=== PATIENT | female | born 1960 | race Caucasian/White ===

== ENCOUNTER → 2016-10-08 | Outpatient (CLI) | payer BC ==
--- NOTE | 2016-10-09 09:37 | MM ---
Reason for exam: screening (asymptomatic). Last mammogram was performed 1 year ago. History: Patient is postmenopausal and history of other cancer. Family history of breast cancer in paternal aunt at age 80 and breast cancer in paternal grandmother at age 60. Physical Findings: A clinical breast exam by your physician is recommended on an annual basis and results should be correlated with mammographic findings. MG Screening Mammo w CAD Bilateral CC and MLO view(s) were taken. Prior study comparison: September 24, 2015, bilateral MG 3d screening mammo w/cad. July 25, 2014, bilateral MG screening mammo w CAD. June 27, 2013, bilateral digital screening mammo w/CAD. There are scattered fibroglandular densities. No significant changes when compared with prior studies. ASSESSMENT: Negative, BI-RAD 1 RECOMMENDATION: Routine screening mammogram of both breasts in 1 year.
== END ==
LOC: RADMAMWWP 16:55
PROVIDERS: ATTEND Hospitalist
DX: Z12.31 Encounter for screening mammogram for malignant neoplasm of breast (principal)

== ENCOUNTER → 2017-12-23 | Outpatient (CLI) | payer BC ==
--- NOTE | 2017-12-25 07:30 | MM ---
Reason for exam: screening (asymptomatic). Last mammogram was performed 1 year and 3 months ago. History: Patient is postmenopausal and has history of other cancer at age 52. Family history of breast cancer in paternal aunt at age 80. Physical Findings: A clinical breast exam by your physician is recommended on an annual basis and results should be correlated with mammographic findings. MG Screening Mammo w CAD Bilateral CC and MLO view(s) were taken. Prior study comparison: October 08, 2016, bilateral MG screening mammo w CAD. September 24, 2015, bilateral MG 3d screening mammo w/cad. There are scattered fibroglandular densities. No significant changes when compared with prior studies. ASSESSMENT: Negative, BI-RAD 1 RECOMMENDATION: Routine screening mammogram of both breasts in 1 year.
== END | disposition home or self-care (01) ==
LOC: RADMAMWWP 09:51
PROVIDERS: ATTEND Internal Medicine
DX: Z12.31 Encounter for screening mammogram for malignant neoplasm of breast (principal)
CPT/HCPCS: 77067

== ENCOUNTER → 2019-04-04 | Outpatient (CLI) | payer BC ==
--- NOTE | 2019-04-06 08:47 | MM ---
Reason for exam: screening (asymptomatic). Last mammogram was performed 1 year and 3 months ago. History: Patient is postmenopausal and has history of other cancer at age 52. Family history of breast cancer in paternal aunt at age 80. Physical Findings: A clinical breast exam by your physician is recommended on an annual basis and results should be correlated with mammographic findings. MG Screening Mammo w CAD Bilateral CC and MLO view(s) were taken. Prior study comparison: December 23, 2017, bilateral MG screening mammo w CAD. October 08, 2016, bilateral MG screening mammo w CAD. There are scattered fibroglandular densities. No significant changes when compared with prior studies. ASSESSMENT: Negative, BI-RAD 1 RECOMMENDATION: Routine screening mammogram of both breasts in 1 year.
== END | disposition home or self-care (01) ==
LOC: RADMAMWWP 16:34
PROVIDERS: ATTEND Hospitalist
DX: Z12.31 Encounter for screening mammogram for malignant neoplasm of breast (principal)
CPT/HCPCS: 77067

== ENCOUNTER 2020-03-24 22:28 | Emergency (ER) | payer BC ==
[2020-03-24 22:35] VITALS: BP 164/85; PULSE 118; RESP 18; TEMP 98.6
--- NOTE | 2020-03-25 00:14 | ED ---
Eye Problem HPI - General Chief complaint: Eye Problems Stated complaint: Eye Problems Time Seen by Provider: 03/24/20 23:25 Source: patient, RN notes reviewed, old records reviewed Mode of arrival: ambulatory Limitations: no limitations - History of Present Illness Initial comments: This is a 59-year-old female DF for evaluation. Patient presents today for evaluation of blurry vision and vitreous floaters only her right eye. History of similar symptoms are less his vitreal tear suffers from [place] glaucoma denies eye pain or trauma. Patient has been taking medications as appropriately MD chief complaint: eye pain (No eye pain patient does have for his in the right eye) -: hour(s) Onset Description: gradual Location: right eye Place: home If Injury: none Severity: mild Consistency: now resolved Associated Symptoms: none Treatments Prior to Arrival: none - Related Data Allergies Allergy/AdvReac Type Severity Reaction Status Date / Time azithromycin [From Zithromax] Allergy Vomiting Verified 03/24/20 22:35 codeine Allergy Vomiting Verified 03/24/20 22:35 latex Allergy Rash/Hives Verified 03/24/20 22:35 Review of Systems ROS Statement: Those systems with pertinent positive or pertinent negative responses have been documented in the HPI. ROS Other: All systems not noted in ROS Statement are negative. Past Medical History Additional Past Medical History / Comment(s): occular hypertension, uterine CA History of Any Multi-Drug Resistant Organisms: None Reported Past Surgical History: Hysterectomy Past Psychological History: Anxiety Smoking Status: Never smoker Past Alcohol Use History: None Reported Past Drug Use History: None Reported General Exam Limitations: no limitations General appearance: alert, in no apparent distress Head exam: Present: atraumatic, normocephalic, normal inspection Eye exam: Present: normal appearance, PERRL, EOMI. Absent: scleral icterus, conjunctival injection, periorbital swelling ENT exam: Present: normal exam, mucous membranes moist Neck exam: Present: normal inspection. Absent: tenderness, meningismus, lymphadenopathy Respiratory exam: Present: normal lung sounds bilaterally. Absent: respiratory distress, wheezes, rales, rhonchi, stridor Cardiovascular Exam: Present: normal rhythm, tachycardia, normal heart sounds. Absent: systolic murmur, diastolic murmur, rubs, gallop, clicks GI/Abdominal exam: Present: soft, normal bowel sounds. Absent: distended, tenderness, guarding, rebound, rigid Extremities exam: Present: normal inspection, full ROM, normal capillary refill. Absent: tenderness, pedal edema, joint swelling, calf tenderness Back exam: Present: normal inspection Neurological exam: Present: alert, oriented X3, CN II-XII intact Psychiatric exam: Present: normal affect, normal mood Skin exam: Present: warm, dry, intact, normal color. Absent: rash Course Vital Signs 03/24/20 22:32 Temperature 98.6 F Pulse Rate 118 H Respiratory 18 Rate Blood Pressure 164/85 O2 Sat by Pulse 99 Oximetry - Reevaluation(s) Reevaluation #1: Medical records reviewed Symptoms remain resolved - Consultations Consultation #1: Spoke with ophthalmology on-call will see patient in office on Thursday Medical Decision Making - Medical Decision Making 59 female vitreous floaters the right eye history of vitreous tear left eye patient will follow-up with ophthalmology on Thursday for further evaluation symptoms are now resolved Disposition Clinical Impression: Vitreous floaters of right eye Disposition: HOME SELF-CARE Instructions (If sedation given, give patient instructions): Visual Floaters (ED) Is patient prescribed a controlled substance at d/c from ED?: No Referrals: Nicole Uribe MD [STAFF PHYSICIAN] - 1-2 days Tamika Rivera MD [STAFF PHYSICIAN] - 1-2 days
== END 2020-03-25 00:23 | disposition home or self-care (01) ==
LOC: EC 22:28
DX: H43.391 Other vitreous opacities, right eye (principal); H53.8 Other visual disturbances; H57.11 Ocular pain, right eye; Z86.69 Personal history of other diseases of the nervous system and sense organs; Z85.42 Personal history of malignant neoplasm of other parts of uterus; Z88.1 Allergy status to other antibiotic agents; Z88.5 Allergy status to narcotic agent; Z91.040 Latex allergy status
CPT/HCPCS: 99284

== ENCOUNTER → 2020-08-08 | Outpatient (CLI) | payer BC ==
--- NOTE | 2020-08-09 10:37 | MM ---
Reason for exam: screening (asymptomatic). Last mammogram was performed 1 year and 4 months ago. History: Patient is postmenopausal and has history of other cancer at age 52. Family history of breast cancer in paternal aunt at age 80. Physical Findings: A clinical breast exam by your physician is recommended on an annual basis and results should be correlated with mammographic findings. MG Screening Mammo w CAD Bilateral CC and MLO view(s) were taken. Prior study comparison: April 04, 2019, bilateral MG screening mammo w CAD. December 23, 2017, bilateral MG screening mammo w CAD. There are scattered fibroglandular densities. There is no discrete abnormality. ASSESSMENT: Negative, BI-RAD 1 RECOMMENDATION: Routine screening mammogram of both breasts in 1 year.
== END | disposition home or self-care (01) ==
LOC: RADMAMWWP 14:39
PROVIDERS: ATTEND Hospitalist
DX: Z12.31 Encounter for screening mammogram for malignant neoplasm of breast (principal)
CPT/HCPCS: 77067

== ENCOUNTER → 2022-12-25 | Outpatient (CLI) | payer OTHER ==
--- NOTE | 2022-12-29 14:45 | MM ---
Reason for Exam: Screening (asymptomatic). Last mammogram was performed 2 year(s) and 4 month(s) ago. Patient History: Menarche at age 12. First Full-Term at age 26. Left ovary removed at age 52. Right ovary removed at age 52. Hysterectomy at age 52. Postmenopausal. Other cancer, age 52. Paternal aunt had breast cancer, age 80. Risk Values: Malinda 5 year model risk: 1.4%. NCI Lifetime model risk: 7.2%. Prior Study Comparison: 12/23/2017 Bilateral Screening Mammogram, [facility]. 04/04/2019 Bilateral Screening Mammogram, [facility]. 08/08/2020 Bilateral Screening Mammogram, [facility]. Tissue Density: There are scattered fibroglandular densities. Findings: Analyzed By CAD. Abdomen appears symmetrical and stable. No significant interval change is evident. No suspicious groups of microcalcifications, spiculated or lobular masses, architectural distortion or other secondary signs of malignancy are mammographically apparent. Overall Assessment: Benign, BI-RAD 2 Management: Screening Mammogram of both breasts in 1 year. A negative mammogram report should not preclude additional follow up of suspicious palpable abnormalities. Patient should continue monthly self breast exam. A clinical breast exam by your physician is recommended on an annual basis and results should be correlated with mammographic findings. Electronically signed and approved by: Yariel Oliver M.D. Radiologis
== END | disposition home or self-care (01) ==
LOC: RADMAMWWP 09:55
DX: Z12.31 Encounter for screening mammogram for malignant neoplasm of breast (principal); Z78.0 Asymptomatic menopausal state; Z80.3 Family history of malignant neoplasm of breast
CPT/HCPCS: 77067

== ENCOUNTER → 2024-07-11 | Outpatient (CLI) | payer OTHER ==
--- NOTE | 2024-07-11 08:45 | MM ---
Reason for Exam: Screening (asymptomatic). Last mammogram was performed 1 year(s) and 7 month(s) ago. Patient History: Menarche at age 12. First Full-Term at age 26. Left ovary removed at age 52. Right ovary removed at age 52. Hysterectomy at age 52. Postmenopausal. Other cancer, age 52. Paternal aunt had breast cancer, age 80. Risk Values: Malinda 5 year model risk: 1.5%. NCI Lifetime model risk: 7.0%. Prior Study Comparison: 04/04/2019 Bilateral Screening Mammogram, [facility]. 08/08/2020 Bilateral Screening Mammogram, [facility]. 12/25/2022 Bilateral MG screening mammo w CAD, [facility]. Tissue Density: The breasts are heterogeneously dense, which may obscure small masses. Findings: Analyzed By CAD. There is no suspicious group of microcalcifications or new suspicious mass in either breast. Tiny calcifications noted. Overall Assessment: Benign, BI-RAD 2 Management: Screening Mammogram of both breasts in 1 year. . Patient should continue monthly self-breast exams. A clinical breast exam by your physician is recommended on an annual basis. This exam should not preclude additional follow-up of suspicious palpable abnormalities. Note on Malinda scores and lifetime risk: 1. A Malinda score greater than 3% is considered moderate risk. If this is the case, consider specialist referral to assess eligibility for a risk reducing agent. 2. If overall lifetime risk for the development of breast cancer is 20% or higher, the patient may qualify for future screening with alternating mammogram and breast MRI. [facility], , 07/11/2024 8:42 AM. Electronically signed and approved by: Tonny Jefferson M.D. Radiologis
== END | disposition home or self-care (01) ==
LOC: RADMAMWWP 07:58
PROVIDERS: ATTEND Family Medicine
DX: Z12.31 Encounter for screening mammogram for malignant neoplasm of breast
CPT/HCPCS: 77067